=== PATIENT | male | born 1950 | race Caucasian/White ===

== ENCOUNTER 2020-08-29 09:53 | Outpatient (REF) | payer OTHER, SELFPAY ==
[2020-08-29 13:34] LABS: HCT 44.2 % (40.0-50.0); HGB 14.6 g/dL (13.5-17.5); MCH 30.2 pg (27.0-33.0); MCV 91.5 fL (80-95); MPV 10.2 fL (8.0-11.0); Platelet Count 362 10^3/uL (130-400); RBC 4.83 10^6/uL (4.36-5.78); RDW 12.6 % (11.8-14.1); RDW-SD 42.4 fL; WBC 9.32 10^3/uL (4.4-10.8)
[2020-08-29 13:42] LABS: Anion Gap 8.8 mmol/L (3-11); BUN 12 mg/dL (7-18); CO2 27.2 mmol/L (21.0-32.0); CREATININE 0.8 mg/dL (0.70-1.30); Calcium 9.1 mg/dL (8.5-10.1); Chloride 102 mmol/L (98-107); Glucose 101 mg/dL (74-106); Potassium 4.5 mmol/L (3.5-5.1); Sodium 138 mmol/L (136-145)
[2020-08-30 15:19] LABS: COVID-19 RT-PCR UVMMC Result Negative (Negative)
== END 2020-08-29 09:54 | disposition home or self-care (01) ==
LOC: NCHCN 09:53
PROVIDERS: PCP Specialist/Technologist Athletic Trainer; Visit Provider Family Medicine
DX: Z01.818 Encounter for other preprocedural examination (principal); Z20.822 Contact with and (suspected) exposure to COVID-19
CPT/HCPCS: 80048; 85027; U0003